=== PATIENT | female | born 1985 | race American Indian/Alaskan Native ===

== ENCOUNTER 2017-01-16 08:51 | Emergency (ER) | payer BC, MEDICAID ==
[2017-01-16 09:04] VITALS: BP 121/77
[2017-01-16 09:49] LABS: Albumin 3.5 g/dL (3.9-5); Albumin/Globulin Ratio 0.9 %; Bilirubin,Total 0.5 mg/dL (0.1-1.2); Blood Urea Nitrogen 8 mg/dL (7-17); Calcium 8.4 mg/dL (8.4-10.2); Carbon Dioxide 22 mmol/L (22-30); Glucose 106 mg/dL (65-100); Lipase 18 units/L (13-60); Sodium 137 mmol/L (137-145); Total Protein 7.2 g/dL (6.3-8.2)
[2017-01-16 10:12] LABS: Hematocrit 33.9 % (30.3-42.9); Hemoglobin 11.9 gm/dl (10.1-14.3); Mean Corpuscular HGB Conc 35 % (30-34); Mean Corpuscular Hemoglobin 29 pg (28-32); Mean Corpuscular Volume 84 fl (79-97); Platelet Count 545 K/mm3 (140-440); Red Blood Count 4.06 M/mm3 (3.65-5.03); Red Cell Distribution Width 14.7 % (13.2-15.2); White Blood Count 6.2 K/mm3 (4.5-11.0)
[2017-01-16 13:03] LABS: Alanine Aminotransferase 9 units/L (7-56); Anion Gap 17 mmol/L
[2017-01-16 13:04] LABS: Alkaline Phosphatase 60 units/L (35-129)
== END 2017-01-16 10:01 | disposition left against medical advice (07) ==
LOC: ED 08:51
DX: R10.2 Pelvic and perineal pain (principal); Z53.21 Procedure and treatment not carried out due to patient leaving prior to being seen by health care provider
CPT/HCPCS: 36415; 80053; 83690; 85025

== ENCOUNTER 2017-04-28 12:29 | Emergency (ER) | payer BC, MEDICAID ==
[2017-04-28] MEDS ORDERED: NACL 0.9% 1000 ML 1,000 ML ONE ×2 (13:00→13:03)
[2017-04-28] MEDS ORDERED: NACL 0.9% 1000 ML 1,000 ML IV ONE ×3 (13:05→14:26)
--- NOTE | 2017-04-28 13:14 | Emergency Department Report ---
ED Female HPI - General Chief complaint: Vaginal Bleeding Stated complaint: POSS MISCARRIAGE Time Seen by Provider: 04/28/17 13:05 Source: patient, EMS Mode of arrival: Stretcher Limitations: No Limitations - History of Present Illness Initial comments: This is a 33 years old female presented to the ER via EMS with his severe vaginal bleeding started last night getting worse today. Patient is 11 weeks twins . Initial blood pressure by EMS was 65/36. There is a stated that she did not have any issue with her current . MD Complaint: vaginal bleeding -: Gradual, Last night Severity: severe Quality: cramping Consistency: intermittent Associated Symptoms: vaginal bleeding, abdominal pain - Related Data Sexually active: Yes Home Medications Medication Instructions Recorded Confirmed Last Taken Vit No.130/Iron/FA 1 each PO DAILY 04/28/17 04/28/17 04/28/17 [ Tablet] Allergies Allergy/AdvReac Type Severity Reaction Status Date / Time No Known Allergies Allergy Unverified 01/10/14 14:34 ED Review of Systems ROS: Stated complaint: POSS MISCARRIAGE Other details as noted in HPI Comment: All other systems reviewed and negative Constitutional: denies: chills, fever Respiratory: denies: cough, shortness of breath, SOB with exertion Cardiovascular: denies: chest pain, palpitations, dyspnea on exertion Gastrointestinal: abdominal pain. denies: nausea, vomiting, diarrhea, constipation, hematemesis, melena Genitourinary: as per HPI Neurological: weakness (generalized). denies: headache ED Past Medical Hx - Surgical History Additional Surgical History: - Social History Smoking Status: Never Smoker Substance Use Type: None - Medications Home Medications: Home Medications Medication Instructions Recorded Confirmed Last Taken Type Vit No.130/Iron/FA 1 each PO DAILY 04/28/17 04/28/17 04/28/17 History [ Tablet] ED Physical Exam - General Limitations: No Limitations General appearance: alert, in distress, other (diaphoretic) - Eye Eye exam: Present: normal appearance - ENT ENT exam: Present: normal exam - Neck Neck exam: Present: normal inspection, full ROM. Absent: tenderness, meningismus - Respiratory Respiratory exam: Present: normal lung sounds bilaterally. Absent: wheezes, rales, rhonchi, stridor, decreased breath sounds - Cardiovascular Cardiovascular Exam: Present: normal rhythm, normal heart sounds - GI/Abdominal GI/Abdominal exam: Present: soft, tenderness. Absent: distended, guarding, rebound, rigid, normal bowel sounds - External exam: Present: normal external exam Speculum exam: Present: vaginal bleeding (blood clots present) - Back Exam Back exam: Absent: CVA tenderness (R), CVA tenderness (L) - Neurological Exam Neurological exam: Present: alert, oriented X3, CN II-XII intact - Skin Skin exam: Present: warm, diaphoretic ED Course Vital Signs 04/28/17 04/28/17 04/28/17 12:50 12:56 12:57 Temperature 98.6 F 98.6 F Pulse Rate 98 H 98 H Respiratory 20 20 Rate Blood Pressure 103/68 Blood Pressure [Left] Blood Pressure 103/68 [Right] O2 Sat by Pulse 99 100 99 Oximetry 04/28/17 04/28/17 04/28/17 13:00 13:05 13:06 Temperature Pulse Rate 88 76 Respiratory 10 L 13 18 Rate Blood Pressure 114/62 114/66 Blood Pressure [Left] Blood Pressure [Right] O2 Sat by Pulse 99 100 Oximetry 04/28/17 04/28/17 04/28/17 13:10 13:11 13:15 Temperature Pulse Rate 83 75 71 Respiratory 18 12 12 Rate Blood Pressure 114/66 Blood Pressure 114/62 [Left] Blood Pressure [Right] O2 Sat by Pulse 99 100 92 Oximetry 04/28/17 04/28/17 04/28/17 13:20 13:25 13:30 Temperature Pulse Rate 90 82 83 Respiratory 15 11 L 10 L Rate Blood Pressure 118/74 120/71 123/71 Blood Pressure [Left] Blood Pressure [Right] O2 Sat by Pulse 100 100 100 Oximetry 04/28/17 04/28/17 04/28/17 13:35 13:40 13:45 Temperature Pulse Rate 82 78 83 Respiratory 15 10 L 11 L Rate Blood Pressure 123/53 107/63 108/62 Blood Pressure [Left] Blood Pressure [Right] O2 Sat by Pulse 100 100 100 Oximetry 04/28/17 04/28/17 04/28/17 13:50 13:55 14:00 Temperature Pulse Rate 79 76 99 H Respiratory 12 13 17 Rate Blood Pressure 111/72 116/70 121/69 Blood Pressure [Left] Blood Pressure [Right] O2 Sat by Pulse 100 100 100 Oximetry 04/28/17 04/28/17 04/28/17 14:05 14:10 14:15 Temperature Pulse Rate 85 74 69 Respiratory 18 11 L 12 Rate Blood Pressure 122/59 106/60 113/64 Blood Pressure [Left] Blood Pressure [Right] O2 Sat by Pulse 100 100 100 Oximetry 04/28/17 04/28/17 04/28/17 14:20 14:25 14:30 Temperature Pulse Rate 96 H 72 73 Respiratory 13 13 9 L Rate Blood Pressure 125/62 117/64 117/63 Blood Pressure [Left] Blood Pressure [Right] O2 Sat by Pulse 100 100 100 Oximetry 04/28/17 04/28/17 04/28/17 14:35 14:41 14:45 Temperature Pulse Rate 75 73 73 Respiratory 14 7 L 11 L Rate Blood Pressure 115/58 110/47 112/61 Blood Pressure [Left] Blood Pressure [Right] O2 Sat by Pulse 100 100 100 Oximetry 04/28/17 04/28/17 14:50 17:12 Temperature Pulse Rate 72 82 Respiratory 8 L Rate Blood Pressure 116/64 Blood Pressure 103/57 [Left] Blood Pressure [Right] O2 Sat by Pulse 100 100 Oximetry - Reevaluation(s) Reevaluation #1: 04/28/17 14:31 Dr. Loo at bedside examining the patient. Patient is still passing large clots of blood. Reviewed the ultrasound report which she showed incomplete will go ahead and give Methergine 0.2 mg IM. Reevaluation #2: 04/28/17 16:44 Patient stated that she is feeling better. Reevaluation #3: 04/28/17 18:29 Patient is stable vital signs stable. Dr. Loo patient can be discharged home. ED Medical Decision Making - Lab Data Result diagrams: 04/28/17 13:18 Critical Care Time: Yes (patient With a low blood pressure and significant abdominal pain) Critical care time in (mins) excluding proc time.: 30 Critical care attestation.: If time is entered above; I have spent that time in minutes in the direct care of this critically ill patient, excluding procedure time. ED Disposition Clinical Impression: Abdominal pain affecting , Vaginal abnormality in , Hypotension Disposition: DC-01 TO HOME OR SELFCARE Is pt being admited?: No Condition: Good Instructions: Spontaneous Miscarriage (ED)
[2017-04-28] MEDS ORDERED: ZOFRAN ONE (13:38)
[2017-04-28] MEDS ORDERED: MORPHINE ONE (13:38)
[2017-04-28 13:39] LABS: Basophils % (Auto) 0.3 % (0.0-1.8); Eosinophils % (Auto) 1.1 % (0.0-4.3); Hematocrit 32.3 % (30.3-42.9); Mean Corpuscular HGB Conc 34 % (30-34); Mean Corpuscular Hemoglobin 30 pg (28-32); Mean Corpuscular Volume 87 fl (79-97); Platelet Count 515 K/mm3 (140-440); Red Blood Count 3.71 M/mm3 (3.65-5.03); Red Cell Distribution Width 14.2 % (13.2-15.2); White Blood Count 6.8 K/mm3 (4.5-11.0)
[2017-04-28] MEDS ORDERED: MORPHINE IV ONE ×2 (13:43→14:17)
[2017-04-28] MEDS ORDERED: ZOFRAN IV ONE (13:43)
[2017-04-28 13:56] LABS: INR 1.18 (0.87-1.13)
[2017-04-28 13:57] LABS: Partial Thromboplastin Time 27.5 Sec. (24.2-36.6)
--- NOTE | 2017-04-28 14:28 | Ultrasound Report ---
Transabdominal OB ultrasound. History: Heavy vaginal bleeding. A serum hCG is not available at the time of this study. By history, the patient had a recent outside OB ultrasound which demonstrated twin intrauterine , but the study is not available. Findings: There is no evidence of an intrauterine . There is a large complex lesion in the region of the cervix measuring 8 x 7 cm, presumably representing an incomplete AB. The endometrial echo measures 9 mm in diameter. The ovaries are unremarkable. There is no fluid in the cul-de-sac. Impression: Large cervical mass probably representing an incomplete AB given the patient's history.
[2017-04-28] MEDS ORDERED: METHERGINE IM ONE (14:30)
--- NOTE | 2017-04-28 17:05 | Consultation ---
History of Present Illness Consult date: 04/28/17 History of present illness: Complete AB This is a 32-year-old female 2 para 1 who presents with a history of heavy vaginal bleeding that started today at work. She states she was diagnosed with twin gestation approximately 3 weeks ago that [facility]. She started spotting yesterday and then had heavy bleeding when she went to work today. Past History Past Medical History: no pertinent history Past Surgical History: section [employer] History: denies: chlamydia, gonorrhea, hepatitis B, hepatitis C, herpes, HIV , syphilis, trichomonas Social history: , smoking, alcohol abuse, prescription drug abuse, IV drug use Medications and Allergies Allergies Allergy/AdvReac Type Severity Reaction Status Date / Time No Known Allergies Allergy Unverified 01/10/14 14:34 Home Medications Medication Instructions Recorded Confirmed Last Taken Type Vit No.130/Iron/FA 1 each PO DAILY 04/28/17 04/28/17 04/28/17 History [ Tablet] Review of Systems All systems: negative Genitourinary: vaginal bleeding, pelvic pain - Vital Signs Vital signs: Vital Signs Temp Pulse Resp BP Pulse Ox 98.6 F 98 H 20 103/68 99 04/28/17 12:50 04/28/17 12:50 04/28/17 12:50 04/28/17 12:50 04/28/17 12:50 Temp Pulse Resp BP Pulse Ox 98.6 F 72 8 L 116/64 100 04/28/17 12:57 04/28/17 14:50 04/28/17 14:50 04/28/17 14:50 04/28/17 14:50 - Physical Exam Breasts: Positive: normal Lungs: Positive: Normal air movement Abdomen: Positive: normal appearance, soft Genitourinary (Female): Positive: normal external genitalia, normal perenium Vulva: both: normal Vagina: Positive: other (on initial evaluation patient had large amount of clots expressed from the vagina. Uterus is unable to be palpated due to body habitus. Uterine massage was attempted.) Results Result Diagrams: 04/28/17 13:18 Abnormal lab results 04/28/17 04/28/17 04/28/17 Range/Units 13:18 13:18 13:31 Plt Count 515 H (140-440) K/mm3 Addison % (Auto) 9.0 H (0.0-7.3) % PT 15.6 H (12.2-14.9) Sec. INR 1.18 H (0.87-1.13) HCG, Quant 8546 H (0-4) mIU/mL All other labs normal. Ultrasound: report reviewed, image reviewed Assessment and Plan - Patient Problems (1) Complete with delayed or excessive hemorrhage Current Visit: Yes Status: Acute Plan to address problem: Patient received 1 dose of Methergine 0.2 mg IM. She was observed for another hour and noted to have minimal bleeding. Patient states she feels much better. Vaginal exam revealed small clot was expressed from the vagina. But no active blood coming from the vagina on visualization. Will allow patient home now. Instructed to call her millwright immediately for follow-up tomorrow. She was instructed to stay at home and not to return to work until released by her millwright. She is to return to the emergency room for increased bleeding or any concerns or problems.
[2017-04-28 17:13] VITALS: BP 103/57
--- NOTE | 2017-04-28 17:19 | Discharge Summary ---
Providers - Providers Date of discharge: 04/28/17 Primary care physician: [employer] Hospitalization Condition: Good Hospital course: See [employer] consult Disposition: DC-01 TO HOME OR SELFCARE - Discharge Diagnoses (1) Complete with delayed or excessive hemorrhage Status: Acute Core Measure Documentation - Palliative Care Palliative Care/ Comfort Measures: Not Applicable - Core Measures Any of the following diagnoses?: none Exam - Constitutional Vitals: Temp Pulse Resp BP Pulse Ox 98.6 F 82 8 L 103/57 100 04/28/17 12:57 04/28/17 17:12 04/28/17 14:50 04/28/17 17:12 04/28/17 17:12 General appearance: Present: no acute distress - Abdominal Female genitourinary: Present: normal, other (minimal bleeding, small clots expressed from the vagina. No active bleeding noted from the vagina. Unable to palpate uterus due to body habitus.) Plan Activity: other (no sex, no driving, stay on your property until you have your visit to her computer security manager. Call your computer security manager or return to the emergency department for increased bleeding or any concerns or problems.) Weight Bearing Status: Non-Weight Bearing Diet: regular Special Instructions: no heavy lifting Additional Instructions: Call your computer security manager immediately for an appointment. Prescriptions will be prescribed to Mahin Slaughter through my office computer
== END 2017-04-28 18:40 | disposition home or self-care (01) ==
LOC: ED 12:29
DX: O34.61 Maternal care for abnormality of vagina, first trimester (principal); I95.9 Hypotension, unspecified; R10.9 Unspecified abdominal pain; Z3A.11 11 weeks gestation of pregnancy
CPT/HCPCS: 36415; 51701; 76801; 84702; 85025; 85610; 85730; 86850; 86900; 86901; 88305; 96361; 96372; 96374; 96375; 96376; 99291; J2210; J2270; J2405; J7030